=== PATIENT | male | born 1980 | race American Indian/Alaskan Native ===

== ENCOUNTER 2020-01-18 21:11 | Emergency (ER) | payer SELFPAY ==
--- NOTE | 2020-01-18 21:20 | Emergency Department Report ---
Blank Doc - Documentation Documentation: 40-year-old male that presents with abdominal pain. This initial assessment/diagnostic orders/clinical plan/treatment(s) is/are subject to change based on patient's health status, clinical progression and re- assessment by fellow clinical providers in the ED. Further treatment and workup at subsequent clinical providers discretion. Patient/guardians urged not to elope from the ED as their condition may be serious if not clinically assessed and managed. Initial orders include: 1- Patient sent to [facility] for further evaluation and treatment 2- labs 3- UA
[2020-01-18 22:56] LABS: Bilirubin,Urine NEG (Negative); Blood,Urine SM (Negative); Color,Urine Yellow (Yellow); Mucus,Urine FEW /HPF; Protein,Urine <15 mg/dL mg/dL (Negative)
[2020-01-18 23:21] LABS: Basophils # (Auto) 0.1 K/mm3 (0.0-0.1); Basophils % (Auto) 0.6 % (0.0-1.8); Eosinophils # (Auto) 0.5 K/mm3 (0.0-0.4); Eosinophils % (Auto) 5.7 % (0.0-4.3); Hematocrit 38.4 % (35.5-45.6); Hemoglobin 12.7 gm/dl (11.8-15.2); Lymphocytes % (Auto) 22.9 % (13.4-35.0); Mean Corpuscular HGB Conc 33 % (32-34); Mean Corpuscular Volume 88 fl (84-94); Monocytes # (Auto) 0.8 K/mm3 (0.0-0.8); Monocytes % (Auto) 8.9 % (0.0-7.3); Platelet Count 377 K/mm3 (140-440); Red Blood Count 4.34 M/mm3 (3.65-5.03); Red Cell Distribution Width 14.6 % (13.2-15.2)
[2020-01-18 23:46] LABS: Alanine Aminotransferase 7 units/L (7-56); Albumin 3.5 g/dL (3.9-5); BUN/Creatinine Ratio 13; Blood Urea Nitrogen 13 mg/dL (9-20); Hemolysis Index 5
--- NOTE | 2020-01-19 05:03 | Cat Scan Report ---
CT ABDOMEN AND PELVIS WITH CONTRAST INDICATION / CLINICAL INFORMATION: Pt complains of lower LEFT abd pain, Hx of hernia repair.. TECHNIQUE: Axial CT images were obtained through the abdomen and pelvis after 100 mL Omnipaque [address] scans at this location are performed using CT dose reduction for ALARA by means of automated exposure control. COMPARISON: None available. FINDINGS: LOWER CHEST: No significant abnormality. LIVER: No significant abnormality. GALLBLADDER: No significant abnormality. BILE DUCTS: No significant abnormality. PANCREAS: No significant abnormality. SPLEEN: No significant abnormality. ADRENALS: No significant abnormality. RIGHT KIDNEY and URETER: No significant abnormality. LEFT KIDNEY and URETER: No significant abnormality. STOMACH and SMALL BOWEL: No significant abnormality. COLON: Mild colonic diverticulosis without acute inflammation. APPENDIX: No significant abnormality. PERITONEUM: No free fluid. No free air. No fluid collection. LYMPH NODES: No significant adenopathy. AORTA and ARTERIES: No significant abnormality. IVC and VEINS: No significant abnormality. URINARY BLADDER: No significant abnormality. REPRODUCTIVE ORGANS: No significant abnormality. ADDITIONAL FINDINGS: Right inguinal hernia repair with no recurrent hernia. Multiple mildly prominent bilateral inguinal lymph nodes. Soft tissue swelling in induration along the lower back and superior gluteal cleft. No drainable fluid collection. SKELETAL SYSTEM: No significant abnormality. IMPRESSION: 1. No inflammatory process or bowel obstruction within the abdomen. 2. Colonic diverticulosis without inflammation. 3. Mildly prominent bilateral inguinal lymph nodes which may be reactive. 4. Previous right inguinal hernia repair with no recurrent hernia. 5. Possible cellulitis of the lower midline back extending to the superior gluteal cleft. No abscess. Signer Name: Sneha Randolph MD Signed: 01/19/2020 4:59 AM Workstation Name: [id number]
[2020-01-19 06:13] VITALS: BP 128/78
== END 2020-01-19 05:56 | disposition home or self-care (01) ==
LOC: ED 21:11
DX: R10.9 Unspecified abdominal pain (principal)
CPT/HCPCS: 36415; 74177; 80053; 81001; 83690; 85025; 87086; 99284; Q9967

== ENCOUNTER 2020-08-15 07:52 | Inpatient (IN) | payer OTHER ==
[2020-08-15 08:29] LABS: Hematocrit 45.1 % (35.5-45.6); Hemoglobin 14.9 gm/dl (11.8-15.2); Mean Corpuscular HGB Conc 33 % (32-34); Mean Corpuscular Volume 88 fl (84-94); Platelet Count 423 K/mm3 (140-440); Red Blood Count 5.13 M/mm3 (3.65-5.03); Red Cell Distribution Width 14.5 % (13.2-15.2)
[2020-08-15 09:36] LABS: Alanine Aminotransferase 7 units/L (7-56); Albumin 3.8 g/dL (3.9-5); BUN/Creatinine Ratio 11; Blood Urea Nitrogen 11 mg/dL (9-20); Calcium 9.5 mg/dL (8.4-10.2); Hemolysis Index 6
[2020-08-15 09:43] LABS: Total Cells Counted 100
[2020-08-15 09:45] LABS: Basophils % (Manual) 0 % (0.0-1.8)
[2020-08-15 09:46] LABS: Platelet Estimate Consistent w Auto; RBC Morphology Normal
--- NOTE | 2020-08-15 12:04 | Emergency Department Report ---
<COLEEN SONG - Last Filed: 08/15/20 13:06> ED Abdominal Pain HPI - General Chief Complaint: Abdominal Pain Stated Complaint: ABD PAIN Time Seen by Provider: 08/15/20 11:32 Source: patient Mode of arrival: Ambulatory Limitations: No Limitations - History of Present Illness Initial Comments: The patient was evaluated in the emergency department for symptoms described in the history of present illness. He/she was evaluated in the context of the global COVID-19 pandemic, which necessitated consideration that the patient might be at risk for infection with the virus that causes COVID-19. Institutional protocols and algorithms that pertain to the evaluation of patients at risk for COVID-19 are in a state of rapid change based on information released by regulatory bodies including the CDC and federal and state organizations. These policies and algorithms were followed during the patient's care in the emergency department. Please note that these policies, procedures and recommendations changed on a rapid basis. 40-year-old -Greek male presents to the emergency room complaining of abdominal pain around his belt line for 2 days. Patient states that the pain had gotten worse last night about a 20 out of 10 and he came in this morning for worsening pain. Patient states that the pain is sharp stabbing and constant. Patient denies any nausea no vomiting but does admit to a decreased appetite. Patient also reports that he has had increased urination about 7-8 times a night. He reports he has been feeling weak and tired worse yesterday. Patient reports that he has been treated for pilonidal cysts and hydradenitis and has been off his Cipro for a week. Patient also states that he had started amlodipine but did not take it today. Patient denies any known drug allergies does have a past medical history of hypertension and pilonidal cysts. MD Complaint: abdominal pain Onset/Timin Location: periumbilical, suprapubic Severity scale (0 -10): 8 Quality: stabbing, sharp Consistency: constant Improves With: nothing Worsens With: nothing Context: recent antibiotic use (Cipro) Associated Symptoms: fever (Low-grade), dysuria. denies: nausea, vomiting, diarrhea, constipation - Related Data Home Medications Medication Instructions Recorded Confirmed Last Taken Bentyl 10 mg PO Q6HR 08/15/20 08/15/20 1 Day Ago ~08/14/20 amLODIPine 5 mg PO DAILY 08/15/20 08/15/20 1 Day Ago ~08/14/20 Previous Rx's Medication Instructions Recorded Last Taken Type Acetaminophen [Acetaminophen TAB] 650 mg PO Q4H PRN tablet 08/19/20 Unknown Rx Ciprofloxacin [Ciprofloxacin ORAL 500 mg PO Q12H #20 ml 08/19/20 Unknown Rx LIQ] Famotidine [Pepcid] 20 mg PO BID #30 tablet 08/19/20 Unknown Rx metroNIDAZOLE [Flagyl] 500 mg PO Q12HR #20 tab 08/19/20 Unknown Rx oxyCODONE /ACETAMINOPHEN [Percocet 1 tab PO Q6HR PRN #30 tablet 08/19/20 Unknown Rx 5/325] Allergies Allergy/AdvReac Type Severity Reaction Status Date / Time No Known Allergies Allergy Unverified 07/02/15 00:09 ED Review of Systems Comment: All other systems reviewed and negative Constitutional: fever Gastrointestinal: abdominal pain ED Past Medical Hx - Past Medical History Previous Medical History?: No - Surgical History Past Surgical History?: No - Social History Smoking Status: Current Every Day Smoker Substance Use Type: None - Medications Home Medications: Home Medications Medication Instructions Recorded Confirmed Last Taken Type Bentyl 10 mg PO Q6HR 08/15/20 08/15/20 1 Day Ago History ~08/14/20 amLODIPine 5 mg PO DAILY 08/15/20 08/15/20 1 Day Ago History ~08/14/20 Acetaminophen [Acetaminophen TAB] 650 mg PO Q4H PRN tablet 08/19/20 Unknown Rx Ciprofloxacin [Ciprofloxacin ORAL 500 mg PO Q12H #20 ml 08/19/20 Unknown Rx LIQ] Famotidine [Pepcid] 20 mg PO BID #30 tablet 08/19/20 Unknown Rx metroNIDAZOLE [Flagyl] 500 mg PO Q12HR #20 tab 08/19/20 Unknown Rx oxyCODONE /ACETAMINOPHEN [Percocet 1 tab PO Q6HR PRN #30 tablet 08/19/20 Unknown Rx 5/325] ED Physical Exam - General Limitations: No Limitations General appearance: alert, in no apparent distress - Head Head exam: Present: atraumatic, normocephalic - Eye Eye exam: Present: normal appearance, PERRL - ENT ENT exam: Present: mucous membranes moist - Neck Neck exam: Present: normal inspection, full ROM - Respiratory Respiratory exam: Present: normal lung sounds bilaterally. Absent: respiratory distress, chest wall tenderness, accessory muscle use - Cardiovascular Cardiovascular Exam: Present: regular rate - GI/Abdominal GI/Abdominal exam: Present: soft, tenderness (Suprapubic). Absent: distended - Back Exam Back exam: Present: normal inspection, full ROM - Neurological Exam Neurological exam: Present: alert, oriented X3 - Psychiatric Psychiatric exam: Present: normal affect, normal mood - Skin Skin exam: Present: warm, dry, intact, normal color. Absent: rash ED Course - Reevaluation(s) Reevaluation #1: 08/15/20 13:[address] Asif Chacon regarding patient's abnormal CT and elevated white count. He would like the patient to be admitted to the hospitalist and for him to be consulted. I discussed antibiotic therapy resuscitation fluids and pain management. ED Medical Decision Making - Lab Data Result diagrams: 08/15/20 08:05 08/15/20 08:05 - Radiology Data Radiology results: report reviewed Patient: BLANE TORRES MR #: [id number] : 1980 Acct:[id number] Age/Sex: 40 / M ADM Date: 08/15/20 Loc: ED Attending Dr: Ordering Physician: HELGA FUENTES Date of Service: 08/15/20 Procedure(s): CT abdomen pelvis w con Accession Number(s): [id number] cc: HELGA FUENTES CT ABDOMEN AND PELVIS WITH CONTRAST INDICATION / CLINICAL INFORMATION: Acute abdominal pain around umbilicus. TECHNIQUE: Axial CT images were obtained through the abdomen and pelvis after 100 cc Omnipaque [address] scans at this location are performed using CT dose reduction for ALARA by means of automated exposure control. COMPARISON: CT abdomen and pelvis with contrast from 01/19/2020. FINDINGS: LOWER CHEST: No significant abnormality. LIVER: There is generalized steatosis without other significant abnormalities. GALLBLADDER: No significant abnormality. BILE DUCTS: No significant abnormality. PANCREAS: No significant abnormality. SPLEEN: No significant abnormality. ADRENALS: No significant abnormality. RIGHT KIDNEY / URETER: Stable simple right upper renal pole cyst. No other significant abnormalities. LEFT KIDNEY / URETER: Stable simple midpole left renal cyst. No other significant abnormalities. STOMACH / SMALL BOWEL: No significant abnormality. COLON: Diverticulosis is again noted along the sigmoid colon with moderate thickening throughout the sigmoid colon and marked surrounding inflammation. Multiple small bubbles of gas are seen along the mesenteric border of the proximal/middle third of the sigmoid colon on images 143 through 149 of series 2, consistent with contained perforation. No other significant abnormality. APPENDIX: Not seen. PERITONEUM: Free air as above. No pneumoperitoneum is noted elsewhere. No free fluid or fluid collection. LYMPH NODES: Mildly enlarged bilateral inguinal nodes are likely reactive. No other significant adenopathy. AORTA / ARTERIES: No significant abnormality. IVC / VEINS: No significant abnormality. URINARY BLADDER: Mild to moderate bladder wall thickening is likely secondary to underdistention as well as surrounding inflammation related to diverticulitis. No other significant abnormality. REPRODUCTIVE ORGANS: No significant abnormality. ADDITIONAL FINDINGS: None. SKELETAL SYSTEM: No significant abnormality. IMPRESSION: 1. Acute sigmoid diverticulitis as above with associated contained perforation. No organized drainable abscess is seen at this time. 2. Additional findings as above. CRITICAL RESULT: Time of Discovery (OPTICAL GLASS WET INSPECTOR/CDT): 11:24 Time of Communication (OPTICAL GLASS WET INSPECTOR/CDT): 11:28 Licensed Practitioner Receiving Report: Dr. oSng Read-Back Performed: Yes. Signer Name: Manav Mooney MD Signed: 08/15/2020 12:28 PM Workstation Name: [id number] Transcribed By: JACOB Dictated By: Manav Mooney MD Electronically Authenticated By: Manav Mooney MD Signed Date/Time: 08/15/20 1228 - Medical Decision Making 40-year-old -Greek male presents to the emergency room complaining of abdominal pain around his belt line for 2 days. Patient states that the pain had gotten worse last night about a 20 out of 10 and he came in this morning for worsening pain. Patient states that the pain is sharp stabbing and constant. Patient denies any nausea no vomiting but does admit to a decreased appetite. Patient also reports that he has had increased urination about 7-8 times a night. He reports he has been feeling weak and tired worse yesterday. Patient reports that he has been treated for pilonidal cysts and hydradenitis and has been off his Cipro for a week. Patient also states that he had started amlodipine but did not take it today. Patient denies any known drug allergies does have a past medical history of hypertension and pilonidal cysts. Call from radiology stating that patient has diverticulosis along the sigmoid colon with moderate thickening throughout the sigmoid and marked surrounding of inflammation with multiple small bubbles of gas are seen along the mesenteric border of the proximal middle third of the sigmoid colon. Consistent with contained perforation. Patient also has mild to moderate bladder wall thickening is likely secondary to undistended as well as surrounding inflammation related to the diverticulitis. 08/15/20 13:[address] Asif Chacon regarding patient's abnormal CT and elevated white count. He would like the patient to be admitted to the hospitalist and for him to be consulted. I discussed antibiotic therapy resuscitation fluids and pain management. Spoke to Dr. Negro regarding admission. He prefers patient to be on Zosyn 3.75 mg and Flagyl order was canceled for Levaquin and added Zosyn. ED Disposition Clinical Impression: Sepsis, Acute abdominal pain Diverticulitis of colon with perforation Qualifiers: Diverticulitis bleeding: unspecified bleeding status Qualified Code(s): K57.20 - Diverticulitis of large intestine with perforation and abscess without bleeding Disposition: OP ADMIT IP TO THIS HOSP Is pt being admited?: Yes Does the pt Need Aspirin: No Condition: Stable <PETER NETTLES - Last Filed: 09/01/20 02:28> ED Review of Systems ROS: Stated complaint: ABD PAIN Other details as noted in HPI ED Course Vital Signs 08/15/20 08/15/20 08/15/20 08:02 15:39 16:12 Temperature 99.0 F Pulse Rate 97 H 86 Respiratory 18 16 16 Rate Blood Pressure 154/105 151/100 [Right] O2 Sat by Pulse 97 99 98 Oximetry ED Medical Decision Making - Lab Data Result diagrams: 08/19/20 08:19 08/19/20 08:19 Critical care attestation.: If time is entered above; I have spent that time in minutes in the direct care of this critically ill patient, excluding procedure time. ED Disposition Is pt being admited?: Yes Does the pt Need Aspirin: No
--- NOTE | 2020-08-15 12:33 | Cat Scan Report ---
CT ABDOMEN AND PELVIS WITH CONTRAST INDICATION / CLINICAL INFORMATION: Acute abdominal pain around umbilicus. TECHNIQUE: Axial CT images were obtained through the abdomen and pelvis after 100 cc Omnipaque [address] scans at this location are performed using CT dose reduction for ALARA by means of automated exposure control. COMPARISON: CT abdomen and pelvis with contrast from 01/19/2020. FINDINGS: LOWER CHEST: No significant abnormality. LIVER: There is generalized steatosis without other significant abnormalities. GALLBLADDER: No significant abnormality. BILE DUCTS: No significant abnormality. PANCREAS: No significant abnormality. SPLEEN: No significant abnormality. ADRENALS: No significant abnormality. RIGHT KIDNEY / URETER: Stable simple right upper renal pole cyst. No other significant abnormalities. LEFT KIDNEY / URETER: Stable simple midpole left renal cyst. No other significant abnormalities. STOMACH / SMALL BOWEL: No significant abnormality. COLON: Diverticulosis is again noted along the sigmoid colon with moderate thickening throughout the sigmoid colon and marked surrounding inflammation. Multiple small bubbles of gas are seen along the m esenteric border of the proximal/middle third of the sigmoid colon on images 143 through 149 of serie s 2, consistent with contained perforation. No other significant abnormality. APPENDIX: Not seen. PERITONEUM: Free air as above. No pneumoperitoneum is noted elsewhere. No free fluid or fluid collect ion. LYMPH NODES: Mildly enlarged bilateral inguinal nodes are likely reactive. No other significant adeno jessee. AORTA / ARTERIES: No significant abnormality. IVC / VEINS: No significant abnormality. URINARY BLADDER: Mild to moderate bladder wall thickening is likely secondary to underdistention as w ell as surrounding inflammation related to diverticulitis. No other significant abnormality. REPRODUCTIVE ORGANS: No significant abnormality. ADDITIONAL FINDINGS: None. SKELETAL SYSTEM: No significant abnormality. IMPRESSION: 1. Acute sigmoid diverticulitis as above with associated contained perforation. No organized drainabl e abscess is seen at this time. 2. Additional findings as above. CRITICAL RESULT: Time of Discovery (CHAPLAINCY/CDT): 11:24 Time of Communication (CHAPLAINCY/CDT): 11:28 Licensed Practitioner Receiving Report: Dr. Bey Read-Back Performed: Yes. Signer Name: Manav Mooney MD Signed: 08/15/2020 12:28 PM Workstation Name: [id number]
[2020-08-15] MEDS ORDERED: ONDANSETRON 4 MG/2 ML INJ IV ONE (12:52)
[2020-08-15] MEDS ORDERED: MORPHINE 2 MG/1 ML INJ IV ONE (12:52)
[2020-08-15] MEDS ORDERED: metroNIDAZOLE/NS 500 MG/100 ML 500 MG/100 ML BAG IV ONE (12:52)
[2020-08-15] MEDS ORDERED: ACETAMINOPHEN 500 MG TAB PO ONE (12:54)
[2020-08-15] MEDS ORDERED: SODIUM CHLORIDE 0.9% 1000 ML 1,000 ML IV ONE (12:54)
[2020-08-15 12:56] LABS: Bacteria,Urine 1+ /HPF (Negative); Bilirubin,Urine NEG (Negative); Blood,Urine SM (Negative); Color,Urine Amber (Yellow); Mucus,Urine 3+ /HPF; Urobilinogen,Urine < 2.0 mg/dL (<2.0)
[2020-08-15] MEDS ORDERED: PIPERACILLIN/TAZOBACTAM 3.375 3.375 GM/50 ML BAG IV ONE (13:00)
--- NOTE | 2020-08-15 18:34 | Consultation ---
History of Present Illness Consult date: 08/15/20 Reason for consult: abdominal pain - History of present illness History of present illness: 40 yo male with 2 day h/o LLQ pain and chills. He denies fever or hematochezia. Had a colonoscopy ? 1 year ago but he is not sure of the results. Strong FH of colon ca which is the reason why he had the colonoscopy. Past History Past Medical History: hypertension Medications and Allergies Allergies Allergy/AdvReac Type Severity Reaction Status Date / Time No Known Allergies Allergy Unverified 07/02/15 00:09 Home Medications Medication Instructions Recorded Confirmed Last Taken Type Bentyl 10 mg PO Q6HR 08/15/20 08/15/20 1 Day Ago History ~08/14/20 amLODIPine [Norvasc] 5 mg PO DAILY 08/15/20 08/15/20 1 Day Ago History ~08/14/20 Review of Systems All systems: negative (none) Exam Vital Signs Temp Pulse Resp BP Pulse Ox 99.0 F 97 H 18 154/105 97 08/15/20 08:02 08/15/20 08:02 08/15/20 08:02 08/15/20 08:02 08/15/20 08:02 - General physical appearance Positive: well developed, well nourished, no distress - Eyes Positive: PERRL, normal occular movement - ENT Positive: normal pinna, normal nares, normal mucosa, no hearing loss, no congestion - Neck Positive: no masses, no bruits, trachea midline, no venous distension - Respiratory Positive: normal expansion, normal respiratory effort, clear to auscultation - Cardiovascular Rhythm: regular Heart Sounds: Present: S1 & S2. Absent: rub, click - Extremities Extremities: no ischemia, pulses symmetrical, No edema - Breasts Breasts: normal, no mass, no skin changes - Abdomen Abdomen: Present: other (Abdomen is soft and non-distended. BS are slightly hypoactive. There is mild/mod LLQ tenderness without rebound/guarding.) Hernia: none - Genitourinary Male Genitourinary: normal Female Genitourinary: normal - Integumentary no rash, no growths, no abnormal pigmentation - Neurologic Neurologic: alert and oriented to time, place and person, motor strength and sensation are grossly intact - Musculoskeletal normal gait, normal posture - Psychiatric Psychiatric: appropriate mood/affect, intact judgment & insight Results - Labs 08/15/20 08:05 08/15/20 08:05 Abnormal lab results 08/15/20 08/15/20 Range/Units 08:05 08:05 WBC 20.6 H (4.5-11.0) K/mm3 RBC 5.13 H (3.65-5.03) M/mm3 Seg Neuts % (Manual) 86.0 H (40.0-70.0) % Lymphocytes % (Manual) 7.0 L (13.4-35.0) % Seg Neutrophils # Man 17.7 H (1.8-7.7) K/mm3 Monocytes # (Manual) 1.2 H (0.0-0.8) K/mm3 Glucose 131 H (75-100) mg/dL Total Protein 8.4 H (6.3-8.2) g/dL Albumin 3.8 L (3.9-5) g/dL Diabetes panel 08/15/20 Range/Units 08:05 Sodium 138 (137-145) mmol/L Potassium 4.2 (3.6-5.0) mmol/L Chloride 99.7 (98-107) mmol/L Carbon Dioxide 23 (22-30) mmol/L BUN 11 (9-20) mg/dL Creatinine 1.0 (0.8-1.3) mg/dL Glucose 131 H (75-100) mg/dL Calcium 9.5 (8.4-10.2) mg/dL AST 8 (5-40) units/L ALT 7 (7-56) units/L Alkaline Phosphatase 83 (35-129) units/L Total Protein 8.4 H (6.3-8.2) g/dL Albumin 3.8 L (3.9-5) g/dL Calcium panel 08/15/20 Range/Units 08:05 Calcium 9.5 (8.4-10.2) mg/dL Albumin 3.8 L (3.9-5) g/dL Pituitary panel 08/15/20 Range/Units 08:05 Sodium 138 (137-145) mmol/L Potassium 4.2 (3.6-5.0) mmol/L Chloride 99.7 (98-107) mmol/L Carbon Dioxide 23 (22-30) mmol/L BUN 11 (9-20) mg/dL Creatinine 1.0 (0.8-1.3) mg/dL Glucose 131 H (75-100) mg/dL Calcium 9.5 (8.4-10.2) mg/dL Adrenal panel 08/15/20 Range/Units 08:05 Sodium 138 (137-145) mmol/L Potassium 4.2 (3.6-5.0) mmol/L Chloride 99.7 (98-107) mmol/L Carbon Dioxide 23 (22-30) mmol/L BUN 11 (9-20) mg/dL Creatinine 1.0 (0.8-1.3) mg/dL Glucose 131 H (75-100) mg/dL Calcium 9.5 (8.4-10.2) mg/dL Total Bilirubin 0.60 (0.1-1.2) mg/dL AST 8 (5-40) units/L ALT 7 (7-56) units/L Alkaline Phosphatase 83 (35-129) units/L Total Protein 8.4 H (6.3-8.2) g/dL Albumin 3.8 L (3.9-5) g/dL - Imaging CT scan - abdomen: report reviewed CT scan - pelvis: report reviewed Assessment and Plan - Patient Problems (1) Diverticulitis of colon with perforation Current Visit: Yes Status: Acute Qualifiers: Diverticulitis bleeding: unspecified bleeding status Qualified Code(s): K57.20 - Diverticulitis of large intestine with perforation and abscess without bleeding Plan to address problem: 1) NPO 2) Broad spectrum IV antibiotics 3) F/u CBC & BMP in the am 4) Will try to avoid operative intervention.
[2020-08-15] MEDS ORDERED: PIPERACILLIN/TAZOBACTAM 3.375 3.375 GM/50 ML BAG IV SCH (22:00)
[2020-08-15] MEDS ORDERED: MORPHINE 2 MG/1 ML INJ IV PRN (22:17)
[2020-08-15] MEDS ORDERED: ACETAMINOPHEN 325 MG TAB PO PRN (22:17)
[2020-08-15] MEDS ORDERED: ONDANSETRON 4 MG/2 ML INJ IV PRN (22:17)
--- NOTE | 2020-08-15 22:20 | History and Physical Report ---
History of Present Illness Date of examination: 08/15/20 Date of admission: 08/15/20 13:06 Chief complaint: Acute abdominal pain for 1 day History of present illness: 40-year-old -[place] male with no significant past medical history except for 1 episode of diverticulitis 2 years ago comes in for left lower quadrant pain radiating to the groin. Pain is about 10 on a scale of 1-10. Had 1 episode of vomiting this morning. No diarrhea. No fever. No exposure to coronavirus. No exacerbating or relieving factors. -- Past Medical History Diverticulitis x1 in 2016/2017 HTN -- Surgical History Past Surgical History?: No -- Social History Smoking Status: Current Every Day Smoker Substance Use Type: None --Family history Htn - Medications Home Medications: Home Medications Medication Instructions Recorded Confirmed Last Taken Type Amoxicillin [Trimox CAP] 500 mg PO BID #20 capsule 07/02/15 Unknown Rx methylPREDNISolone [Medrol Dose 4 mg PO .TAPER #1 pack 07/02/15 Unknown Rx Terence] Hyoscyamine Subl [Levsin Sl 0.125 0.125 mg SL Q6HR PRN #20 tab 01/19/20 Unknown Rx TAB] Review of Systems ROS: Stated complaint: ABD PAIN Constitutional no weight loss or weight gain no fever or chills HEENT no sore throat no post nasal drip no diplopia Neck no neck stiffness no lymph gland enlargement Chest and lungs no shortness of breath cough or wheezing CVS no chest pain no diaphoresis no palpitations GI left lower quadrant pain and vomiting x1 Genitourinary system no dysuria no flank pain Musculoskeletal system no muscle pains no joint pains [employer] no syncope no seizures Skin no rash no itching Psychiatric no depression no homicidal or suicidal tendencies Hematologic no lymphedema or bruising Endocrine no polydipsia no polyuria no cold intolerance no heat intolerance Past History Past Medical History: hypertension Medications and Allergies Allergies Allergy/AdvReac Type Severity Reaction Status Date / Time No Known Allergies Allergy Unverified 07/02/15 00:09 Home Medications Medication Instructions Recorded Confirmed Last Taken Type Bentyl 10 mg PO Q6HR 08/15/20 08/15/20 1 Day Ago History ~08/14/20 amLODIPine [Norvasc] 5 mg PO DAILY 08/15/20 08/15/20 1 Day Ago History ~08/14/20 Active Meds: Active Medications Piperacillin Sod/Tazobactam Sod (Zosyn/Ns 3.375gm/50ml) 3.375 gm in 50 mls @ 100 mls/hr IV Q8H [facility]; Protocol Last Admin: 08/15/20 21:51 Dose: 100 mls/hr Documented by: Exam - Constitutional Vitals: Temp Pulse Resp BP Pulse Ox 99.0 F 86 16 151/100 98 08/15/20 08:02 08/15/20 16:12 08/15/20 16:12 08/15/20 16:12 08/15/20 16:12 General appearance: Present: no acute distress, well-nourished - EENT Eyes: Present: PERRL ENT: hearing intact, clear oral mucosa - Neck Neck: Present: supple, normal ROM - Respiratory Respiratory effort: normal Respiratory: bilateral: CTA - Cardiovascular Heart rate: 88 Rhythm: regular Heart Sounds: Present: S1 & S2. Absent: rub, click - Extremities Extremities: pulses symmetrical, No edema Peripheral Pulses: within normal limits - Abdominal General gastrointestinal: Present: soft, tender, non-distended, normal bowel sounds Localized gastrointestinal: tender: LLQ, guarding: LLQ Male genitourinary: Present: normal - Integumentary Integumentary: Present: clear, warm, dry - Musculoskeletal Musculoskeletal: gait normal, strength equal bilaterally - Psychiatric Psychiatric: appropriate mood/affect, intact judgment & insight - Neurologic Neurologic: CNII-XII intact, moves all extremities - Allied Health Allied health notes reviewed: nursing, case management Results - Labs CBC & Chem 7: 08/15/20 08:05 08/15/20 08:05 Labs: Laboratory Last Values WBC 20.6 K/mm3 (4.5-11.0) H 08/15/20 08:05 RBC 5.13 M/mm3 (3.65-5.03) H 08/15/20 08:05 Hgb 14.9 gm/dl (11.8-15.2) 08/15/20 08:05 Hct 45.1 % (35.5-45.6) 08/15/20 08:05 MCV 88 fl (84-94) 08/15/20 08:05 MCH 29 pg (28-32) 08/15/20 08:05 MCHC 33 % (32-34) 08/15/20 08:05 RDW 14.5 % (13.2-15.2) 08/15/20 08:05 Plt Count 423 K/mm3 (140-440) 08/15/20 08:05 Add Manual Diff Complete 08/15/20 08:05 Total Counted 100 08/15/20 08:05 Seg Neuts % (Manual) 86.0 % (40.0-70.0) H 08/15/20 08:05 Band Neutrophils % 0 % 08/15/20 08:05 Lymphocytes % (Manual) 7.0 % (13.4-35.0) L 08/15/20 08:05 Reactive Lymphs % (Man) 0 % 08/15/20 08:05 Monocytes % (Manual) 6.0 % (0.0-7.3) 08/15/20 08:05 Eosinophils % (Manual) 1.0 % (0.0-4.3) 08/15/20 08:05 Basophils % (Manual) 0 % (0.0-1.8) 08/15/20 08:05 Metamyelocytes % 0 % 08/15/20 08:05 Myelocytes % 0 % 08/15/20 08:05 Promyelocytes % 0 % 08/15/20 08:05 Blast Cells % 0 % 08/15/20 08:05 Nucleated RBC % Not Reportable 08/15/20 08:05 Seg Neutrophils # Man 17.7 K/mm3 (1.8-7.7) H 08/15/20 08:05 Band Neutrophils # 0.0 K/mm3 08/15/20 08:05 Lymphocytes # (Manual) 1.4 K/mm3 (1.2-5.4) 08/15/20 08:05 Abs React Lymphs (Man) 0.0 K/mm3 08/15/20 08:05 Monocytes # (Manual) 1.2 K/mm3 (0.0-0.8) H 08/15/20 08:05 Eosinophils # (Manual) 0.2 K/mm3 (0.0-0.4) 08/15/20 08:05 Basophils # (Manual) 0.0 K/mm3 (0.0-0.1) 08/15/20 08:05 Metamyelocytes # 0.0 K/mm3 08/15/20 08:05 Myelocytes # 0.0 K/mm3 08/15/20 08:05 Promyelocytes # 0.0 K/mm3 08/15/20 08:05 Blast Cells # 0.0 K/mm3 08/15/20 08:05 WBC Morphology Not Reportable 08/15/20 08:05 Hypersegmented Neuts Not Reportable 08/15/20 08:05 Hyposegmented Neuts Not Reportable 08/15/20 08:05 Hypogranular Neuts Not Reportable 08/15/20 08:05 Smudge Cells Not Reportable 08/15/20 08:05 Toxic Granulation Not Reportable 08/15/20 08:05 Toxic Vacuolation Not Reportable 08/15/20 08:05 Dohle Bodies Not Reportable 08/15/20 08:05 Pelger-Huet Anomaly Not Reportable 08/15/20 08:05 Lino Rods Not Reportable 08/15/20 08:05 Platelet Estimate Consistent w auto 08/15/20 08:05 Clumped Platelets Not Reportable 08/15/20 08:05 Plt Clumps, EDTA Not Reportable 08/15/20 08:05 Large Platelets Not Reportable 08/15/20 08:05 Giant Platelets Not Reportable 08/15/20 08:05 Platelet Satelliting Not Reportable 08/15/20 08:05 Plt Morphology Comment Not Reportable 08/15/20 08:05 RBC Morphology Normal 08/15/20 08:05 Dimorphic RBCs Not Reportable 08/15/20 08:05 Polychromasia Not Reportable 08/15/20 08:05 Hypochromasia Not Reportable 08/15/20 08:05 Poikilocytosis Not Reportable 08/15/20 08:05 Anisocytosis Not Reportable 08/15/20 08:05 Microcytosis Not Reportable 08/15/20 08:05 Macrocytosis Not Reportable 08/15/20 08:05 Spherocytes Not Reportable 08/15/20 08:05 Pappenheimer Bodies Not Reportable 08/15/20 08:05 Sickle Cells Not Reportable 08/15/20 08:05 Target Cells Not Reportable 08/15/20 08:05 Tear Drop Cells Not Reportable 08/15/20 08:05 Ovalocytes Not Reportable 08/15/20 08:05 Helmet Cells Not Reportable 08/15/20 08:05 Padron-Kittanning Bodies Not Reportable 08/15/20 08:05 [place] Rings Not Reportable 08/15/20 08:05 Justus Cells Not Reportable 08/15/20 08:05 Bite Cells Not Reportable 08/15/20 08:05 Crenated Cell Not Reportable 08/15/20 08:05 Elliptocytes Not Reportable 08/15/20 08:05 Acanthocytes (Spur) Not Reportable 08/15/20 08:05 Rouleaux Not Reportable 08/15/20 08:05 Hemoglobin C Crystals Not Reportable 08/15/20 08:05 Schistocytes Not Reportable 08/15/20 08:05 Malaria parasites Not Reportable 08/15/20 08:05 Hunter Bodies Not Reportable 08/15/20 08:05 Hem Pathologist Commnt No 08/15/20 08:05 Sodium 138 mmol/L (137-145) 08/15/20 08:05 Potassium 4.2 mmol/L (3.6-5.0) 08/15/20 08:05 Chloride 99.7 mmol/L (98-107) 08/15/20 08:05 Carbon Dioxide 23 mmol/L (22-30) 08/15/20 08:05 Anion Gap 20 mmol/L 08/15/20 08:05 BUN 11 mg/dL (9-20) 08/15/20 08:05 Creatinine 1.0 mg/dL (0.8-1.3) 08/15/20 08:05 Estimated GFR > 60 ml/min 08/15/20 08:05 BUN/Creatinine Ratio 11 % 08/15/20 08:05 Glucose 131 mg/dL (75-100) H 08/15/20 08:05 Calcium 9.5 mg/dL (8.4-10.2) 08/15/20 08:05 Total Bilirubin 0.60 mg/dL (0.1-1.2) 08/15/20 08:05 AST 8 units/L (5-40) 08/15/20 08:05 ALT 7 units/L (7-56) 08/15/20 08:05 Alkaline Phosphatase 83 units/L (35-129) 08/15/20 08:05 Total Protein 8.4 g/dL (6.3-8.2) H 08/15/20 08:05 Albumin 3.8 g/dL (3.9-5) L 08/15/20 08:05 Albumin/Globulin Ratio 0.8 % 08/15/20 08:05 Urine Color Deysi (Yellow) 08/15/20 11:43 Urine Turbidity Clear (Clear) 08/15/20 11:43 Urine pH 5.0 (5.0-7.0) 08/15/20 11:43 Ur Specific [place] 1.025 (1.003-1.030) 08/15/20 11:43 Urine Protein 30 mg/dl mg/dL (Negative) 08/15/20 11:43 Urine Glucose (UA) Neg mg/dL (Negative) 08/15/20 11:43 Urine Ketones Tr mg/dL (Negative) 08/15/20 11:43 Urine Blood Sm (Negative) 08/15/20 11:43 Urine Nitrite Neg (Negative) 08/15/20 11:43 Urine Bilirubin Neg (Negative) 08/15/20 11:43 Urine Urobilinogen < 2.0 mg/dL (<2.0) 08/15/20 11:43 Ur Leukocyte Esterase Neg (Negative) 08/15/20 11:43 Urine WBC (Auto) 2.0 /HPF (0.0-6.0) 08/15/20 11:43 Urine RBC (Auto) 5.0 /HPF (0.0-6.0) 08/15/20 11:43 Urine Bacteria (Auto) 1+ /HPF (Negative) 08/15/20 11:43 Urine Mucus 3+ /HPF 08/15/20 11:43 - Imaging and Cardiology Imaging and Cardiology: Abdominal CAT scan Findings diverticulosis noted along the sigmoid colon with moderate thickening throughout the sigmoid colon and mild surrounding inflammation. Multiple small bubbles of gas are seen along the mesenteric border of the proximal/middle third of the sigmoid colon on images 143 through 149 consistent with contained perforation no other significant abnormality. Impression Acute sigmoid diverticulitis as above with associated contained perforation no organized drainable abscess is seen at this time Additional findings as above Sarkar/IV: Voiding Method Toilet IV Catheter Type [Left Hand] INT / Saline Lock Assessment and Plan Advance Directives: Yes - Patient Problems (1) Sepsis Current Visit: Yes Status: Acute Plan to address problem: Secondary to diverticulitis. Patient has a high white count. Continue IV Zosyn and IV Flagyl (2) Diverticulitis of colon with perforation Current Visit: Yes Status: Acute Qualifiers: Diverticulitis bleeding: unspecified bleeding status Qualified Code(s): K57.20 - Diverticulitis of large intestine with perforation and abscess without bleeding Plan to address problem: Patient has sigmoid diverticulitis with contained perforation. Surgical consult requested Patient may be amenable to IV antibiotic therapy ID consult also requested for antibiotic change (3) Hypertension Current Visit: Yes Status: Chronic Qualifiers: Hypertension type: essential hypertension Qualified Code(s): I10 - Essential (primary) hypertension Plan to address problem: Will initiate Catapres patch if blood pressure goes up. Patient is n.p.o. now (4) Pilonidal cyst Current Visit: Yes Status: Inactive (5) Hidradenitis Current Visit: Yes Status: Chronic Plan to address problem: In the perianal region May respond to IV Zosyn which is being given for the diverticulitis (6) DVT prophylaxis Current Visit: Yes Status: Acute Plan to address problem: On heparin and GI prophylaxis
[2020-08-15] MEDS: HEPARIN 5,000 UNIT/1 ML VIAL SUB-Q SCH (22:31)
[2020-08-15] MEDS: metroNIDAZOLE/NS 500 MG/100 ML 500 MG/100 ML BAG IV SCH (22:33)
[2020-08-15] MEDS: PIPERACIL/TAZOBACTA 4.5/NS 100 4.5 GM/100 ML VIAL IV SCH (22:34)
[2020-08-15] MEDS: HYDROmorphone 1 MG/1 ML INJ IV PRN (23:58)
[2020-08-16] MEDS: metroNIDAZOLE/NS 500 MG/100 ML 500 MG/100 ML BAG IV SCH ×3 (06:38→22:04)
[2020-08-16] MEDS: HYDROmorphone 1 MG/1 ML INJ IV PRN ×3 (06:40→20:00)
[2020-08-16] MEDS: PIPERACIL/TAZOBACTA 4.5/NS 100 4.5 GM/100 ML VIAL IV SCH ×3 (06:41→22:04)
[2020-08-16] MEDS: HEPARIN 5,000 UNIT/1 ML VIAL SUB-Q SCH ×2 (09:20→22:04)
[2020-08-16] MEDS: FAMOTIDINE 20 MG/2 ML INJ IV SCH ×2 (09:20→22:04)
[2020-08-16 11:56] LABS: Basophils # (Auto) 0.1 K/mm3 (0.0-0.1); Basophils % (Auto) 0.4 % (0.0-1.8); Eosinophils # (Auto) 0.1 K/mm3 (0.0-0.4); Eosinophils % (Auto) 0.7 % (0.0-4.3); Hematocrit 41.3 % (35.5-45.6); Hemoglobin 13.9 gm/dl (11.8-15.2); Lymphocytes # (Auto) 1.9 K/mm3 (1.2-5.4); Lymphocytes % (Auto) 12.1 % (13.4-35.0); Mean Corpuscular HGB Conc 34 % (32-34); Mean Corpuscular Volume 89 fl (84-94); Monocytes # (Auto) 1.3 K/mm3 (0.0-0.8); Monocytes % (Auto) 8.2 % (0.0-7.3); Platelet Count 428 K/mm3 (140-440); Red Blood Count 4.66 M/mm3 (3.65-5.03); Red Cell Distribution Width 14.4 % (13.2-15.2)
[2020-08-16 12:16] LABS: BUN/Creatinine Ratio 14; Blood Urea Nitrogen 11 mg/dL (9-20); Calcium 9.4 mg/dL (8.4-10.2); Hemolysis Index 16
[2020-08-16] MEDS: D5W/0.9% NACL 1,000 ML IV SCH (13:13)
--- NOTE | 2020-08-16 13:29 | Progress Note ---
Assessment and Plan - Patient Problems (1) Diverticulitis of colon with perforation Current Visit: Yes Status: Acute Qualifiers: Diverticulitis bleeding: unspecified bleeding status Qualified Code(s): K57.20 - Diverticulitis of large intestine with perforation and abscess without bleeding Plan to address problem: 1) Improving Plan: 1) CLD 2) Continue Zosyn 3) CBC & BMP in the am Subjective Date of service: 08/16/20 Patient Reports: Positive: no new complaints, feels better Objective Vital Signs - 12hr 08/16/20 06:26 Temperature 97.8 F Pulse Rate 90 Respiratory 16 Rate Blood Pressure 117/79 O2 Sat by Pulse 98 Oximetry - Abdomen soft, bowel sounds normal (Non-distended; less tender in the LLQ; No rebound or guarding.) - Labs 08/16/20 11:33 08/16/20 11:33 Diabetes panel 08/15/20 08/16/20 Range/Units 08:05 11:33 Sodium 138 (137-145) mmol/L Potassium 4.7 (3.6-5.0) mmol/L Chloride 99.3 (98-107) mmol/L Carbon Dioxide 27 (22-30) mmol/L BUN 11 (9-20) mg/dL Creatinine 0.8 (0.8-1.3) mg/dL Glucose 88 (75-100) mg/dL Hemoglobin A1c 5.6 (4-6) % Calcium 9.4 (8.4-10.2) mg/dL Calcium panel 08/16/20 Range/Units 11:33 Calcium 9.4 (8.4-10.2) mg/dL Pituitary panel 08/16/20 Range/Units 11:33 Sodium 138 (137-145) mmol/L Potassium 4.7 (3.6-5.0) mmol/L Chloride 99.3 (98-107) mmol/L Carbon Dioxide 27 (22-30) mmol/L BUN 11 (9-20) mg/dL Creatinine 0.8 (0.8-1.3) mg/dL Glucose 88 (75-100) mg/dL Calcium 9.4 (8.4-10.2) mg/dL Adrenal panel 08/16/20 Range/Units 11:33 Sodium 138 (137-145) mmol/L Potassium 4.7 (3.6-5.0) mmol/L Chloride 99.3 (98-107) mmol/L Carbon Dioxide 27 (22-30) mmol/L BUN 11 (9-20) mg/dL Creatinine 0.8 (0.8-1.3) mg/dL Glucose 88 (75-100) mg/dL Calcium 9.4 (8.4-10.2) mg/dL
--- NOTE | 2020-08-16 19:25 | Progress Note ---
Assessment and Plan - Patient Problems (1) Sepsis Current Visit: Yes Status: Acute Plan to address problem: Secondary to diverticulitis. Patient has a high white count. Continue IV Zosyn and IV Flagyl (2) Diverticulitis of colon with perforation Current Visit: Yes Status: Acute Qualifiers: Diverticulitis bleeding: unspecified bleeding status Qualified Code(s): K57.20 - Diverticulitis of large intestine with perforation and abscess without bleeding Plan to address problem: Patient has sigmoid diverticulitis with contained perforation. Surgical consult requested Patient may be amenable to IV antibiotic therapy ID consult also requested for antibiotic change (3) Hypertension Current Visit: Yes Status: Chronic Qualifiers: Hypertension type: essential hypertension Qualified Code(s): I10 - Essential (primary) hypertension Plan to address problem: Will initiate Catapres patch if blood pressure goes up. Patient is n.p.o. now (4) Pilonidal cyst Current Visit: Yes Status: Inactive (5) Hidradenitis Current Visit: Yes Status: Chronic Plan to address problem: In the perianal region May respond to IV Zosyn which is being given for the diverticulitis (6) DVT prophylaxis Current Visit: Yes Status: Acute Plan to address problem: On heparin and GI prophylaxis Subjective Date of service: 08/16/20 Principal diagnosis: Acute Diverticulitis Interval history: 40-year-old -[place] male with no significant past medical history except for 1 episode of diverticulitis 2 years ago comes in for left lower quadrant pain radiating to the groin. Pain is about 10 on a scale of 1-10. Had 1 episode of vomiting this morning. No diarrhea. No fever. No exposure to coronavirus. No exacerbating or relieving factors. Day #2-- Patient left lower quadrant pain is slightly better Surgery consult appreciated Repeat CBC and BMP in the a.m. Objective - Constitutional Vitals: Vital Signs - 12hr 08/16/20 08/16/20 12:49 15:51 Temperature 99.6 F 99.4 F Pulse Rate 90 79 Respiratory 16 15 Rate Blood Pressure 145/93 137/95 O2 Sat by Pulse 99 99 Oximetry General appearance: Present: no acute distress, well-nourished - EENT Eyes: PERRL, EOM intact ENT: hearing intact, clear oral mucosa Ears: bilateral: normal - Neck Neck: supple, normal ROM - Respiratory Respiratory effort: normal Respiratory: bilateral: CTA - Breasts Breasts: normal - Cardiovascular Rhythm: regular Heart Sounds: Present: S1 & S2. Absent: gallop, rub Extremities: pulses intact, No edema, normal color, Full ROM - Gastrointestinal General gastrointestinal: Present: soft, tender, non-distended, normal bowel sounds Localized gastrointestinal: tender: LLQ (No guarding) - Genitourinary Male genitourinary: normal - Integumentary Integumentary: clear, warm, dry - Musculoskeletal Musculoskeletal: 1, strength equal bilaterally - Neurologic Neurologic: moves all extremities - Psychiatric Psychiatric: memory intact, appropriate mood/affect, intact judgment & insight - Labs CBC & Chem 7: 08/16/20 11:33 08/16/20 11:33 Labs: Abnormal lab results 08/16/20 Range/Units 11:33 WBC 15.9 H (4.5-11.0) K/mm3 Lymph % (Auto) 12.1 L (13.4-35.0) % [place] % (Auto) 8.2 H (0.0-7.3) % [place] # (Auto) 1.3 H (0.0-0.8) K/mm3 Seg Neutrophils % 78.6 H (40.0-70.0) % Seg Neutrophils # 12.5 H (1.8-7.7) K/mm3
[2020-08-17] MEDS: D5W/0.9% NACL 1,000 ML IV SCH ×2 (03:55→21:52)
[2020-08-17] MEDS: metroNIDAZOLE/NS 500 MG/100 ML 500 MG/100 ML BAG IV SCH (05:06)
[2020-08-17] MEDS: PIPERACIL/TAZOBACTA 4.5/NS 100 4.5 GM/100 ML VIAL IV SCH ×3 (05:06→21:54)
--- NOTE | 2020-08-17 07:46 | Progress Note ---
Assessment and Plan - Patient Problems (1) Acute abdominal pain Current Visit: Yes Status: Acute Plan to address problem: Currently has resolved secondary to diverticular disease with colonic perforation. (2) Diverticulitis of colon with perforation Current Visit: Yes Status: Acute Qualifiers: Diverticulitis bleeding: unspecified bleeding status Qualified Code(s): K57.20 - Diverticulitis of large intestine with perforation and abscess without bleeding Plan to address problem: Patient much improved with bowel rest. Able to tolerate p.o. clear liquids. Advance to full liquids and then to soft foods in the a.m. (3) Sepsis Current Visit: Yes Status: Acute Plan to address problem: Continues to improve. Patient fever curve is coming down 99. Leukocytosis improved from 20-15. Clinically patient's abdomen has improved. Continue present antibiotic coverage. (4) Hidradenitis Current Visit: Yes Status: Chronic Plan to address problem: Should continue to improve with Zosyn. Pain control aggressive IV volume hydration. (5) Hypertension Current Visit: Yes Status: Chronic Qualifiers: Hypertension type: essential hypertension Qualified Code(s): I10 - Essential (primary) hypertension Plan to address problem: Continues to have optimal blood pressure control. Continue present medical management. (6) Pilonidal cyst Current Visit: Yes Status: Inactive Plan to address problem: This is causing majority of patients pain especially after he has a bowel movement goes to the bathroom. We will add Tucks pads to the area as well treat with IV Zosyn. Subjective Date of service: 08/17/20 Principal diagnosis: Acute Diverticulitis Interval history: Patient at present feels better tolerating clear liquid diet. Had 2 bowel movements today. Patient has no pain in the abdomen is only pain comes from the pilonidal cyst. Objective - Constitutional Vitals: Vital Signs - 12hr 08/16/20 08/17/20 08/17/20 22:30 00:00 06:28 Temperature 99.2 F 99.9 F H Pulse Rate 83 86 Pulse Rate [ 83 Right Brachial] Respiratory 18 18 18 Rate Blood Pressure 119/80 120/79 O2 Sat by Pulse 97 97 95 Oximetry 08/17/20 06:55 Temperature Pulse Rate Pulse Rate [ 86 Right Brachial] Respiratory 18 Rate Blood Pressure O2 Sat by Pulse 95 Oximetry General appearance: Present: no acute distress, well-nourished - EENT Eyes: PERRL, EOM intact ENT: hearing intact, clear oral mucosa Ears: bilateral: normal - Neck Neck: supple, normal ROM - Respiratory Respiratory effort: normal Respiratory: bilateral: CTA - Breasts Breasts: normal - Cardiovascular Rhythm: regular Heart Sounds: Present: S1 & S2. Absent: gallop, rub Extremities: pulses intact, No edema, normal color, Full ROM - Gastrointestinal General gastrointestinal: Present: soft, tender, non-distended, normal bowel sounds, other (Tenderness with deep palpation only.) - Genitourinary Male genitourinary: normal - Integumentary Integumentary: clear, warm, dry - Musculoskeletal Musculoskeletal: 1, strength equal bilaterally - Neurologic Neurologic: moves all extremities - Psychiatric Psychiatric: memory intact, appropriate mood/affect, intact judgment & insight - Labs CBC & Chem 7: 08/17/20 08:20 08/16/20 11:33 Labs: Abnormal lab results 08/16/20 Range/Units 11:33 WBC 15.9 H (4.5-11.0) K/mm3 Lymph % (Auto) 12.1 L (13.4-35.0) % [place] % (Auto) 8.2 H (0.0-7.3) % [place] # (Auto) 1.3 H (0.0-0.8) K/mm3 Seg Neutrophils % 78.6 H (40.0-70.0) % Seg Neutrophils # 12.5 H (1.8-7.7) K/mm3
[2020-08-17 08:45] LABS: Hematocrit 42.4 % (35.5-45.6); Hemoglobin 14.2 gm/dl (11.8-15.2); Mean Corpuscular HGB Conc 34 % (32-34); Mean Corpuscular Volume 89 fl (84-94); Platelet Count 430 K/mm3 (140-440); Red Blood Count 4.79 M/mm3 (3.65-5.03); Red Cell Distribution Width 14.4 % (13.2-15.2)
[2020-08-17] MEDS: HYDROmorphone 1 MG/1 ML INJ IV PRN ×3 (10:01→23:45)
[2020-08-17] MEDS: FAMOTIDINE 20 MG/2 ML INJ IV SCH ×2 (10:01→21:56)
[2020-08-17] MEDS: HEPARIN 5,000 UNIT/1 ML VIAL SUB-Q SCH ×2 (10:02→21:56)
--- NOTE | 2020-08-17 13:49 | Progress Note ---
Assessment and Plan (1) Diverticulitis of colon with perforation Current Visit: Yes Status: Acute Qualifiers: Diverticulitis bleeding: unspecified bleeding status Qualified Code(s): K57.20 - Diverticulitis of large intestine with perforation and abscess without bleeding Plan to address problem: Patient continues to improve. His white blood cell count is trending down. No fevers or chills. Tolerating clear liquids. Plan: 1) continue CLD, will consider advancing to full liquids tomorrow 2) Continue Zosyn 3) as needed pain control 4) IVF Thank you for this consultation. Please call with any questions or concerns. Evaluation and treatment of this patient was during the time of the national and state emergency arising from COVID19 coronavirus pandemic. Treatment and procedures performed meet the current and available best practice and guidelines for patient during the COVID pandemic. Subjective Date of service: 08/17/20 Narrative: Patient seen and examined. He states he feels better every day. Abdominal pain is much improved. No fevers or chills. He had a liquid bowel movement. Denies melena or hematochezia. He is tolerating a clear liquid diet. The patient had a colonoscopy in April 2020 which showed a small polyp, internal hemorrhoids, diverticulosis Objective Vital Signs - 12hr 08/17/20 08/17/20 08/17/20 06:28 06:55 12:04 Temperature 99.9 F H 98.7 F Pulse Rate 86 82 Pulse Rate [ 86 Right Brachial] Respiratory 18 18 16 Rate Blood Pressure 120/79 120/91 O2 Sat by Pulse 95 95 98 Oximetry - General physical appearance Narrative Exam: Gen.: Awake, alert, oriented 3. No apparent distress ENT: Trachea midline. No lymphadenopathy. No scleral icterus or conjunctival pallor CV: S1, S2 present Respiratory: No audible wheezes Abdomen: Soft, nondistended, mild suprapubic tenderness to palpation. No rebound, rigidity, guarding Extremities: No clubbing, cyanosis, edema - Labs 08/17/20 08:20 08/16/20 11:33
[2020-08-18] MEDS: PIPERACIL/TAZOBACTA 4.5/NS 100 4.5 GM/100 ML VIAL IV SCH ×3 (05:49→22:07)
[2020-08-18] MEDS: HEPARIN 5,000 UNIT/1 ML VIAL SUB-Q SCH ×2 (09:39→22:08)
[2020-08-18] MEDS: FAMOTIDINE 20 MG/2 ML INJ IV SCH ×2 (09:40→22:08)
[2020-08-18] MEDS: D5W/0.9% NACL 1,000 ML IV SCH ×2 (09:44→22:21)
[2020-08-18] MEDS: HYDROmorphone 1 MG/1 ML INJ IV PRN ×3 (09:51→22:09)
--- NOTE | 2020-08-18 15:08 | Progress Note ---
Assessment and Plan - Patient Problems (1) Acute abdominal pain Current Visit: Yes Status: Acute Plan to address problem: Currently has resolved secondary to diverticular disease with colonic perforation. Patient now tolerating meals well tolerated full diet to with advance as tolerated. (2) Diverticulitis of colon with perforation Current Visit: Yes Status: Acute Qualifiers: Diverticulitis bleeding: unspecified bleeding status Qualified Code(s): K57.20 - Diverticulitis of large intestine with perforation and abscess without bleeding Plan to address problem: Patient much improved with bowel rest. Able to tolerate p.o. clear liquids. Advance to full liquids and then to soft foods in the a.m. (3) Sepsis Current Visit: Yes Status: Acute Plan to address problem: Continues to improve. Patient fever curve is coming down 99. Leukocytosis improved from 20-15. Clinically patient's abdomen has improved. Continue present antibiotic coverage. Will change to p.o. antibiotics for tomorrow. (4) Hidradenitis Current Visit: Yes Status: Chronic Plan to address problem: Should continue to improve with Zosyn. Pain control aggressive IV volume hydration. (5) Hypertension Current Visit: Yes Status: Chronic Qualifiers: Hypertension type: essential hypertension Qualified Code(s): I10 - Essential (primary) hypertension Plan to address problem: Continues to have optimal blood pressure control. Continue present medical management. (6) Pilonidal cyst Current Visit: Yes Status: Inactive Plan to address problem: This is causing majority of patients pain especially after he has a bowel movement goes to the bathroom. We will add Tucks pads to the area as well treat with IV Zosyn. Subjective Date of service: 08/18/20 Principal diagnosis: Acute Diverticulitis Interval history: Patient at present feels better tolerating full liquid diet. Had an additional bowel movements today. Patient has no pain today. Feels much better keeping food down without pain. Objective - Constitutional Vitals: Vital Signs - 12hr 08/18/20 08/18/20 06:01 11:14 Temperature 98.3 F 97.7 F Pulse Rate 83 77 Respiratory 16 20 Rate Blood Pressure 115/87 120/88 O2 Sat by Pulse 98 97 Oximetry General appearance: Present: no acute distress, well-nourished - EENT Eyes: PERRL, EOM intact ENT: hearing intact, clear oral mucosa Ears: bilateral: normal - Neck Neck: supple, normal ROM - Respiratory Respiratory effort: normal Respiratory: bilateral: CTA - Breasts Breasts: normal - Cardiovascular Rhythm: regular Heart Sounds: Present: S1 & S2. Absent: gallop, rub Extremities: pulses intact, No edema, normal color, Full ROM - Gastrointestinal General gastrointestinal: Present: soft, non-tender, non-distended, normal bowel sounds - Genitourinary Male genitourinary: normal - Integumentary Integumentary: clear, warm, dry - Musculoskeletal Musculoskeletal: 1, strength equal bilaterally - Neurologic Neurologic: moves all extremities - Psychiatric Psychiatric: memory intact, appropriate mood/affect, intact judgment & insight - Labs CBC & Chem 7: 08/17/20 08:20 08/16/20 11:33
--- NOTE | 2020-08-18 16:00 | Progress Note ---
Assessment and Plan 40 yo M with (1) Complicated sigmoid diverticulitis (2) Chronic pilonidal cyst without abscess (3) Hidradenitits Patient continues to improve. Plan: 1) adv to full liquid diet, soft diet in am 2) Continue IV abx -> transition to oral cipro and flagyl x 14 total days of abx 3) as needed pain control 4) dc IVF 5) had a long discussion with patient regarding his chronic pilonidal cyst as well as hidradenitis. This has been an ongoing issue for the patient for the last 2 years and is not acute. Patient has already seen Dr. Valiente at [facility], a security intelligence analyst, and Dr. Vizcaino (plastic surgeon). He has been prescribed topical medications for this issue. The patient states that it was recommended that the hidradenitis be treated aggressively before considering surgical excision of the pilonidal cyst. Recommend continuing these topical therapies, sitz baths, warm compresses to the area. Patient may follow-up with the specialist as an outpatient or may follow-up with Dr. Chacon upon discharge. Patient tolerates soft diet in a.m., may be discharged from surgical standpoint. I am covering for Dr. Chacon until 08/19/2020. Please call with any questions or concerns. Evaluation and treatment of this patient was during the time of the national and state emergency arising from COVID19 coronavirus pandemic. Treatment and procedures performed meet the current and available best practice and guidelines for patient during the COVID pandemic. Subjective Date of service: 08/18/20 Narrative: Patient seen and examined. No abdominal pain. No nausea or vomiting. Tolerating liquid diet. No fevers or chills. Main complaint is regarding a pilonidal cyst, chronic. He states that the area is extremely uncomfortable. There has not been any drainage from the area. He states that this has been an ongoing issue for the last 1 to 2 years which is been made worse with hidradenitis in the area. Objective Vital Signs - 12hr 08/18/20 08/18/20 06:01 11:14 Temperature 98.3 F 97.7 F Pulse Rate 83 77 Respiratory 16 20 Rate Blood Pressure 115/87 120/88 O2 Sat by Pulse 98 97 Oximetry - General physical appearance Narrative Exam: Gen.: Awake, alert, oriented 3. No apparent distress ENT: Trachea midline. No lymphadenopathy. No scleral icterus or conjunctival pallor CV: S1, S2 present Respiratory: No audible wheezes Abdomen: Soft, nondistended, nontender. No rebound, rigidity, guarding Extremities: No clubbing, cyanosis, edema Sacrum: There is evidence of chronic induration of the skin of the sacral region and intergluteal cleft. Multiple sinus tracts are seen without drainage. - Labs 08/17/20 08:20 08/16/20 11:33
[2020-08-19] MEDS: HYDROmorphone 1 MG/1 ML INJ IV PRN ×2 (05:54→11:47)
[2020-08-19] MEDS: PIPERACIL/TAZOBACTA 4.5/NS 100 4.5 GM/100 ML VIAL IV SCH (05:55)
[2020-08-19 08:45] LABS: Basophils # (Auto) 0.1 K/mm3 (0.0-0.1); Basophils % (Auto) 0.8 % (0.0-1.8); Eosinophils # (Auto) 0.3 K/mm3 (0.0-0.4); Eosinophils % (Auto) 3.7 % (0.0-4.3); Hematocrit 37.9 % (35.5-45.6); Hemoglobin 12.9 gm/dl (11.8-15.2); Lymphocytes # (Auto) 1.8 K/mm3 (1.2-5.4); Lymphocytes % (Auto) 21.2 % (13.4-35.0); Mean Corpuscular HGB Conc 34 % (32-34); Mean Corpuscular Volume 87 fl (84-94); Monocytes % (Auto) 12.1 % (0.0-7.3); Platelet Count 420 K/mm3 (140-440); Red Blood Count 4.35 M/mm3 (3.65-5.03); Red Cell Distribution Width 14.1 % (13.2-15.2)
[2020-08-19 09:10] LABS: BUN/Creatinine Ratio 5; Blood Urea Nitrogen 5 mg/dL (9-20); Calcium 8.9 mg/dL (8.4-10.2); Hemolysis Index 4
[2020-08-19] MEDS: FAMOTIDINE 20 MG/2 ML INJ IV SCH (09:10)
[2020-08-19] MEDS: HEPARIN 5,000 UNIT/1 ML VIAL SUB-Q SCH (09:11)
[2020-08-19] MEDS: D5W/0.9% NACL 1,000 ML IV SCH (11:50)
[2020-08-19 11:52] VITALS: BP 137/100
--- NOTE | 2020-08-19 11:59 | Discharge Summary ---
Providers - Providers Date of Admission: 08/15/20 13:06 Date of discharge: 08/19/20 Attending physician: LEIGH MCMILLAN 08/15/20 12:58 Consult to Physician [CONS] Urgent Comment: Consulting Provider: BIBIANA GUTHRIE Physician Instructions: Reason For Exam: Diverticulitis with contained perforation 08/18/20 12:21 Consult to Dietitian/Nutrition [CONS] Routine Physician Instructions: Reason For Exam: Reason for Consult: Diet education, diverticulitis Primary care physician: CONTINUING EDUCATION DIRECTOR Hospitalization Condition: Stable Disposition: DC-30 STILL A PATIENT - Discharge Diagnoses (1) Acute abdominal pain Status: Acute Comment: Secondary to acute diverticulitis patient now much better after IV antibiotics. Surgical evaluation complete. Patient to have pilonidal cyst and hidradenitis treated conservatively first prior to surgical intervention. (2) Diverticulitis of colon with perforation Status: Acute Qualifiers: Diverticulitis bleeding: unspecified bleeding status Qualified Code(s): K57.20 - Diverticulitis of large intestine with perforation and abscess without bleeding (3) Sepsis Status: Acute Comment: No colonic perforation at this time. Treated IV antibiotics patient defervesced well decreased fever curve decreased pain unable able to tolerate p.o. now. Patient soft diet no complications stable for discharge. (4) Hidradenitis Status: Chronic Comment: Treat conservatively with topicals and p.o. antibiotics prior to surgical intervention. Patient is seen [facility] [place] recommendations have been made. (5) Hypertension Status: Chronic Qualifiers: Hypertension type: essential hypertension Qualified Code(s): I10 - Essential (primary) hypertension Comment: Well-controlled. (6) Pilonidal cyst Status: Inactive Comment: Follow-up surgery as outpatient. Core Measure Documentation - Palliative Care Palliative Care/ Comfort Measures: Not Applicable - Core Measures Any of the following diagnoses?: none Exam - Constitutional Vitals: Temp Pulse Resp BP Pulse Ox 98.1 F 69 20 137/100 99 08/19/20 11:10 08/19/20 11:10 08/19/20 11:10 08/19/20 11:10 08/19/20 11:10 General appearance: Present: no acute distress, well-nourished - EENT Eyes: Present: PERRL ENT: hearing intact, clear oral mucosa - Neck Neck: Present: supple, normal ROM - Respiratory Respiratory effort: normal Respiratory: bilateral: CTA - Cardiovascular Heart Sounds: Present: S1 & S2. Absent: rub, click - Extremities Extremities: pulses symmetrical, No edema Peripheral Pulses: within normal limits - Abdominal General gastrointestinal: Present: soft, non-tender, non-distended, normal bowel sounds Male genitourinary: Present: normal - Integumentary Integumentary: Present: clear, warm, dry - Musculoskeletal Musculoskeletal: gait normal, strength equal bilaterally - Psychiatric Psychiatric: appropriate mood/affect, intact judgment & insight - Neurologic Neurologic: CNII-XII intact, moves all extremities Plan Activity: no restrictions Weight Bearing Status: Full Weight Bearing Diet: low fat, advance as tolerated Wound: keep clean and dry Follow up with: PRIMARY CARE, [Primary Care Provider] - 3-5 Days BIBIANA GUTHRIE MD [Staff Physician] - 7 Days Prescriptions: Ciprofloxacin [Ciprofloxacin ORAL LIQ] 500 mg PO Q12H #20 ml metroNIDAZOLE [Flagyl] 500 mg PO Q12HR #20 tab Famotidine [Pepcid] 20 mg PO BID #30 tablet
[2020-08-19] MEDS ORDERED: FAMOTIDINE 20 MG TAB PO SCH (22:00)
== END 2020-08-19 15:40 | disposition home or self-care (01) | DRG 872 ==
LOC: ED 07:52 → 3A 13:06
PROVIDERS: ADMIT Internal Medicine; ATTEND Internal Medicine
DX: A41.9 Sepsis, unspecified organism (principal); K57.20 Diverticulitis of large intestine with perforation and abscess without bleeding; L05.91 Pilonidal cyst without abscess; D72.829 Elevated white blood cell count, unspecified; I10 Essential (primary) hypertension; L73.2 Hidradenitis suppurativa; F17.210 Nicotine dependence, cigarettes, uncomplicated; Z82.49 Family history of ischemic heart disease and other diseases of the circulatory system
CPT/HCPCS: 36415; 74177; 80048; 80053; 81001; 83036; 85007; 85025; 85027; 96374; 96375; G0378; J1170; J1644; J1956; J2270; J2405; J2543; J7030; J7042; Q9967

== ENCOUNTER 2020-12-16 14:37 | Emergency (ER) | payer OTHER ==
[2020-12-16 15:06] VITALS: BP 140/91
--- NOTE | 2020-12-16 15:59 | Emergency Department Report ---
- General Chief complaint: Medical Clearance Stated complaint: PAIN ON TAIL BONE Time Seen by Provider: 12/16/20 15:28 Source: patient Mode of arrival: Ambulatory Limitations: No Limitations - History of Present Illness Initial comments: This is a 40-year-old male nontoxic, well nourished in appearance, no acute signs of distress presents to the ED with c/o of redness and pain some swelling to buttock area. Patient has history of hidradenitis. Patient stated that he typically takes doxycycline 100 mg twice a day for 10 days which resolves. Patient stated that he was unable to follow-up with a primary care doctor due to no abilities. Patient does have a schedule appointment for surgical excision of the conditions. Patient denies any pus or drainage. Patient denies any fever, chills, nausea, vomiting, chest pain, shortness of breath, headache or stiff neck. Patient denies any allergies. -: days(s) Location: buttocks Severity: mild Severity scale (0 -10): 8 Quality: aching Consistency: constant Improves with: none Worsens with: none Context: none Associated symptoms: denies other symptoms - Related Data Home Medications Medication Instructions Recorded Confirmed Last Taken Bentyl 10 mg PO Q6HR 08/15/20 08/15/20 1 Day Ago ~08/14/20 amLODIPine 5 mg PO DAILY 08/15/20 08/15/20 1 Day Ago ~08/14/20 Previous Rx's Medication Instructions Recorded Last Taken Type Acetaminophen [Acetaminophen TAB] 650 mg PO Q4H PRN tablet 08/19/20 Unknown Rx Ciprofloxacin [Ciprofloxacin ORAL 500 mg PO Q12H #20 ml 08/19/20 Unknown Rx LIQ] Famotidine [Pepcid] 20 mg PO BID #30 tablet 08/19/20 Unknown Rx metroNIDAZOLE [Flagyl] 500 mg PO Q12HR #20 tab 08/19/20 Unknown Rx oxyCODONE /ACETAMINOPHEN [Percocet 1 tab PO Q6HR PRN #30 tablet 08/19/20 Unknown Rx 5/325] Doxycycline Hyclate [Doxycycline 100 mg PO Q12HR #20 tab 12/16/20 Unknown Rx Hyclate TAB] Allergies Allergy/AdvReac Type Severity Reaction Status Date / Time No Known Allergies Allergy Verified 12/16/20 15:03 Abscess Boil HPI - HPI Chief Complaint: Medical Clearance Stated Complaint: PAIN ON TAIL BONE Time Seen by Provider: 12/16/20 15:28 Home Medications: Home Medications Medication Instructions Recorded Confirmed Last Taken Bentyl 10 mg PO Q6HR 08/15/20 08/15/20 1 Day Ago ~08/14/20 amLODIPine 5 mg PO DAILY 08/15/20 08/15/20 1 Day Ago ~08/14/20 Previous Rx's Medication Instructions Recorded Last Taken Type Acetaminophen [Acetaminophen TAB] 650 mg PO Q4H PRN tablet 08/19/20 Unknown Rx Ciprofloxacin [Ciprofloxacin ORAL 500 mg PO Q12H #20 ml 08/19/20 Unknown Rx LIQ] Famotidine [Pepcid] 20 mg PO BID #30 tablet 08/19/20 Unknown Rx metroNIDAZOLE [Flagyl] 500 mg PO Q12HR #20 tab 08/19/20 Unknown Rx oxyCODONE /ACETAMINOPHEN [Percocet 1 tab PO Q6HR PRN #30 tablet 08/19/20 Unknown Rx 5/325] Doxycycline Hyclate [Doxycycline 100 mg PO Q12HR #20 tab 12/16/20 Unknown Rx Hyclate TAB] Allergies/Adverse Reactions: Allergies Allergy/AdvReac Type Severity Reaction Status Date / Time No Known Allergies Allergy Verified 12/16/20 15:03 ED Review of Systems ROS: Stated complaint: PAIN ON TAIL BONE Other details as noted in HPI Comment: All other systems reviewed and negative Constitutional: denies: chills, fever Eyes: denies: eye pain, eye discharge, vision change ENT: denies: ear pain, throat pain Respiratory: denies: cough, shortness of breath, wheezing Cardiovascular: denies: chest pain, palpitations Endocrine: no symptoms reported Gastrointestinal: denies: abdominal pain, nausea, diarrhea Genitourinary: denies: urgency, dysuria Musculoskeletal: denies: back pain, joint swelling, arthralgia Skin: denies: rash, lesions Neurological: denies: headache, weakness, paresthesias Psychiatric: denies: anxiety, depression Hematological/Lymphatic: denies: easy bleeding, easy bruising ED Past Medical Hx - Past Medical History Hx Hypertension: Yes Hx Heart Attack/AMI: No Hx Congestive Heart Failure: No Hx Diabetes: No Hx Deep Vein Thrombosis: No Hx GERD: No Hx Renal Disease: No Hx Arthritis: No Hx Seizures: No Hx Kidney Stones: No Hx Asthma: No Hx COPD: No Hx Dementia: No Hx HIV: No - Surgical History Hx Coronary Stent: No Hx Pacemaker: No Hx Internal Defibrillator: No - Social History Smoking Status: Never Smoker Substance Use Type: None - Medications Home Medications: Home Medications Medication Instructions Recorded Confirmed Last Taken Type Bentyl 10 mg PO Q6HR 08/15/20 08/15/20 1 Day Ago History ~08/14/20 amLODIPine 5 mg PO DAILY 08/15/20 08/15/20 1 Day Ago History ~08/14/20 Acetaminophen [Acetaminophen TAB] 650 mg PO Q4H PRN tablet 08/19/20 Unknown Rx Ciprofloxacin [Ciprofloxacin ORAL 500 mg PO Q12H #20 ml 08/19/20 Unknown Rx LIQ] Famotidine [Pepcid] 20 mg PO BID #30 tablet 08/19/20 Unknown Rx metroNIDAZOLE [Flagyl] 500 mg PO Q12HR #20 tab 08/19/20 Unknown Rx oxyCODONE /ACETAMINOPHEN [Percocet 1 tab PO Q6HR PRN #30 tablet 08/19/20 Unknown Rx 5/325] Doxycycline Hyclate [Doxycycline 100 mg PO Q12HR #20 tab 12/16/20 Unknown Rx Hyclate TAB] ED Physical Exam - General Limitations: No Limitations General appearance: alert, in no apparent distress - Head Head exam: Present: atraumatic, normocephalic - Eye Eye exam: Present: normal appearance - Neck Neck exam: Present: normal inspection, full ROM - Respiratory Respiratory exam: Absent: respiratory distress - Cardiovascular Cardiovascular Exam: Present: regular rate - External exam: Present: normal external exam, other (Some multiple redness, pain and swelling that is nodular. No induration or fluctuance noted on exam to the buttock area.). Absent: erythema, swelling, lesions, lacerations, ecchymosis, bleeding - Extremities Exam Extremities exam: Present: full ROM - Back Exam Back exam: Present: full ROM - Neurological Exam Neurological exam: Present: alert, oriented X3, normal gait - Psychiatric Psychiatric exam: Present: normal affect, normal mood - Skin Skin exam: Present: warm, dry, intact, normal color. Absent: rash ED Course Vital Signs 12/16/20 15:05 Temperature 98 F Pulse Rate 106 H Respiratory 18 Rate Blood Pressure 140/91 [Right] O2 Sat by Pulse 96 Oximetry - Reevaluation(s) Reevaluation #1: 12/16/20 15:58 Patient is speaking in full sentences with no signs of distress noted. ED Medical Decision Making - Medical Decision Making This is a 40-year-old male that presents with hydradenitis flareup. Patient is stable and was examined by me. There is no induration, fluctuance. No signs of abscess formation. Patient be treated with doxycycline as he requested. Patient was referred to Follow-up with a primary care doctor in 3-5 days or if symptoms worsen and continue return to emergency room as soon as possible. At time of discharge, the patient does not seem toxic or ill in appearance. No acute signs of distress noted. Patient agrees to discharge treatment plan of care. No further questions noted by the patient. Critical care attestation.: If time is entered above; I have spent that time in minutes in the direct care of this critically ill patient, excluding procedure time. ED Disposition Clinical Impression: Hidradenitis Disposition: DC-01 TO HOME OR SELFCARE Is pt being admited?: No Does the pt Need Aspirin: No Condition: Stable Instructions: Hidradenitis Suppurativa Additional Instructions: Follow-up with a primary care doctor in 3-5 days or if symptoms worsen and continue return to emergency room as soon as possible. Prescriptions: Doxycycline Hyclate [Doxycycline Hyclate TAB] 100 mg PO Q12HR #20 tab Referrals: PRIMARY MD DARIANA [Referring] - 3-5 Days AMIRAH SANDERS MD [Staff Physician] - 3-5 Days Time of Disposition: 15:59
== END 2020-12-16 16:57 | disposition home or self-care (01) ==
LOC: ED 14:37
DX: L73.2 Hidradenitis suppurativa (principal); I10 Essential (primary) hypertension; Z79.899 Other long term (current) drug therapy
CPT/HCPCS: 99282

== ENCOUNTER 2020-12-28 20:00 | Emergency (ER) | payer OTHER ==
--- NOTE | 2020-12-28 23:19 | Emergency Department Report ---
- General Chief Complaint: Wound/Laceration Stated Complaint: HYDRONITIS Time Seen by Provider: 12/28/20 22:49 Source: patient Mode of arrival: Ambulatory Limitations: No Limitations - History of Present Illness Initial Comments: Chief complaint: "Tailbone infection" HPI: This is a 40-year-old male with a history of diverticulitis, hidradenitis, pilonidal cyst, hypertension who presents with infection at his tailbone. He was seen December 16. 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 He has a flareup with pain. He no longer has access to antibiotics. Patient has hidradenitis at the sacral region as well as underlying probable nidal cyst which has been present for the past 6 months. He has received consultations by several surgeons. He has 2 surgeons who will treat him surgically. He plans to have a diverting colostomy with bowel resection prior to extensive excision in the sacral region. He states that he has had increased pain and drainage. Patient states that doxycycline normally helps the inflammation and pain. Mild pain in the region. It is uncomfortable to sit. -: Gradual, month(s) (6 months) Associated Symptoms: pain, other (drainage) - Related Data Home Medications Medication Instructions Recorded Confirmed Last Taken Bentyl 10 mg PO Q6HR 08/15/20 08/15/20 1 Day Ago ~08/14/20 amLODIPine 5 mg PO DAILY 08/15/20 08/15/20 1 Day Ago ~08/14/20 Previous Rx's Medication Instructions Recorded Last Taken Type Acetaminophen [Acetaminophen TAB] 650 mg PO Q4H PRN tablet 08/19/20 Unknown Rx Ciprofloxacin [Ciprofloxacin ORAL 500 mg PO Q12H #20 ml 08/19/20 Unknown Rx LIQ] Famotidine [Pepcid] 20 mg PO BID #30 tablet 08/19/20 Unknown Rx metroNIDAZOLE [Flagyl] 500 mg PO Q12HR #20 tab 08/19/20 Unknown Rx oxyCODONE /ACETAMINOPHEN [Percocet 1 tab PO Q6HR PRN #30 tablet 08/19/20 Unknown Rx 5/325] Doxycycline Hyclate [Doxycycline 100 mg PO Q12HR #20 tab 12/16/20 Unknown Rx Hyclate TAB] Doxycycline Hyclate [Doxycycline 100 mg PO Q12HR 14 Days #28 tab 12/28/20 Unkno wn Rx Hyclate TAB] Allergies Allergy/AdvReac Type Severity Reaction Status Date / Time No Known Allergies Allergy Verified 12/16/20 15:03 ED Review of Systems ROS: Stated complaint: HYDRONITIS Other details as noted in HPI Comment: All other systems reviewed and negative Constitutional: chills. denies: fever, malaise Respiratory: denies: cough, shortness of breath Gastrointestinal: denies: abdominal pain, nausea, vomiting Skin: rash, lesions ED Past Medical Hx - Past Medical History Previous Medical History?: Yes Hx Hypertension: Yes Hx Heart Attack/AMI: No Hx Congestive Heart Failure: No Hx Diabetes: No Hx Deep Vein Thrombosis: No Hx GERD: No Hx Renal Disease: No Hx Arthritis: No Hx Seizures: No Hx Kidney Stones: No Hx Asthma: No Hx COPD: No Hx Dementia: No Hx HIV: No Additional medical history: Pilonidal Cyst, hidradenitis - Surgical History Past Surgical History?: No Hx Coronary Stent: No Hx Pacemaker: No Hx Internal Defibrillator: No - Social History Smoking Status: Never Smoker Substance Use Type: None - Medications Home Medications: Home Medications Medication Instructions Recorded Confirmed Last Taken Type Bentyl 10 mg PO Q6HR 08/15/20 08/15/20 1 Day Ago History ~08/14/20 amLODIPine 5 mg PO DAILY 08/15/20 08/15/20 1 Day Ago History ~08/14/20 Acetaminophen [Acetaminophen TAB] 650 mg PO Q4H PRN tablet 08/19/20 Unknown Rx Ciprofloxacin [Ciprofloxacin ORAL 500 mg PO Q12H #20 ml 08/19/20 Unknown Rx LIQ] Famotidine [Pepcid] 20 mg PO BID #30 tablet 08/19/20 Unknown Rx metroNIDAZOLE [Flagyl] 500 mg PO Q12HR #20 tab 08/19/20 Unknown Rx oxyCODONE /ACETAMINOPHEN [Percocet 1 tab PO Q6HR PRN #30 tablet 08/19/20 Unknown Rx 5/325] Doxycycline Hyclate [Doxycycline 100 mg PO Q12HR #20 tab 12/16/20 Unknown Rx Hyclate TAB] Doxycycline Hyclate [Doxycycline 100 mg PO Q12HR 14 Days #28 tab 12/28/20 Unknown Rx Hyclate TAB] ED Physical Exam - General Limitations: No Limitations General appearance: alert, in no apparent distress - Head Head exam: Present: atraumatic, normocephalic - Eye Eye exam: Present: normal appearance - ENT ENT exam: Present: mucous membranes moist - Neck Neck exam: Present: normal inspection, full ROM - Respiratory Respiratory exam: Present: normal lung sounds bilaterally. Absent: respiratory distress, wheezes, rales, rhonchi - Cardiovascular Cardiovascular Exam: Present: regular rate, normal rhythm, normal heart sounds. Absent: systolic murmur, diastolic murmur, rubs, gallop - GI/Abdominal GI/Abdominal exam: Present: soft, normal bowel sounds. Absent: distended, tenderness, guarding, rebound - Rectal Rectal exam: Present: deferred - Extremities Exam Extremities exam: Present: normal inspection - Back Exam Back exam: Present: normal inspection - Neurological Exam Neurological exam: Present: alert, oriented X3 - Psychiatric Psychiatric exam: Present: normal affect, normal mood - Skin Skin exam: Present: other (Sacral region: Hyperpigmented indurated skin with papular lesions, 2 lesions with small expression of purulent drainage, underlying fluctuance) ED Course Vital Signs 12/28/20 20:48 Temperature 99.6 F Pulse Rate 95 H Respiratory 16 Rate Blood Pressure 159/111 O2 Sat by Pulse 97 Oximetry ED Medical Decision Making - Medical Decision Making This is a 40-year-old male who is currently under treatment of 2 surgeons. He plans to have 2 significant surgeries including a diverting colostomy with bowel resection prior to extensive excision. I have prescribed doxycycline. Patient was referred to [employer] [facility] for medical treatment. However he was unable to receive an appointment until February. Patient is discharged home in stable condition. Critical care attestation.: If time is entered above; I have spent that time in minutes in the direct care of this critically ill patient, excluding procedure time. ED Disposition Clinical Impression: Hidradenitis, Hidradenitis suppurativa, Pilonidal cyst Disposition: DC-01 TO HOME OR SELFCARE Is pt being admited?: No Does the pt Need Aspirin: No Condition: Stable Instructions: Pilonidal Cyst, Hidradenitis Suppurativa Prescriptions: Doxycycline Hyclate [Doxycycline Hyclate TAB] 100 mg PO Q12HR 14 Days #28 tab Referrals: RUT PENA [Other] - 3-5 Days
[2020-12-28 23:38] VITALS: BP 147/87
== END 2020-12-28 23:37 | disposition home or self-care (01) ==
LOC: ED 20:00
DX: L73.2 Hidradenitis suppurativa (principal); L05.91 Pilonidal cyst without abscess; I10 Essential (primary) hypertension; Z79.899 Other long term (current) drug therapy
CPT/HCPCS: 99282

== ENCOUNTER 2021-03-20 00:27 | Emergency (ER) | payer SELFPAY ==
[2021-03-20 01:14] VITALS: BP 152/93
[2021-03-20 01:31] LABS: Basophils # (Auto) 0.1 K/mm3 (0.0-0.1); Basophils % (Auto) 0.8 % (0.0-1.8); Eosinophils % (Auto) 0.4 % (0.0-4.3); Hematocrit 40.4 % (35.5-45.6); Hemoglobin 13.6 gm/dl (11.8-15.2); Lymphocytes # (Auto) 1.6 K/mm3 (1.2-5.4); Lymphocytes % (Auto) 13.1 % (13.4-35.0); Mean Corpuscular HGB Conc 34 % (32-34); Mean Corpuscular Volume 88 fl (84-94); Monocytes # (Auto) 1.4 K/mm3 (0.0-0.8); Platelet Count 335 K/mm3 (140-440); Red Blood Count 4.61 M/mm3 (3.65-5.03); Red Cell Distribution Width 15.4 % (13.2-15.2)
[2021-03-20 01:54] LABS: Bilirubin,Urine NEG (Negative); Blood,Urine NEG (Negative); Color,Urine Yellow (Yellow); Mucus,Urine 1+ /HPF; Protein,Urine <15 mg/dL mg/dL (Negative)
[2021-03-20 01:55] LABS: Alanine Aminotransferase 14 units/L (7-56); Albumin 3.6 g/dL (3.9-5); BUN/Creatinine Ratio 11; Blood Urea Nitrogen 11 mg/dL (9-20); Calcium 8.4 mg/dL (8.4-10.2); Hemolysis Index 4
[2021-03-20] MEDS ORDERED: ONDANSETRON 4 MG/2 ML INJ IV ONE (03:53)
[2021-03-20] MEDS ORDERED: cefTRIAXone/NS 1 GM/50 ML 1 GM/50 ML BAG IV ONE (03:53)
--- NOTE | 2021-03-20 04:04 | Emergency Department Report ---
ED Abdominal Pain HPI - General Chief Complaint: Abdominal Pain Stated Complaint: PAIN LOWER STOMACH Time Seen by Provider: 03/20/21 03:52 Source: patient Mode of arrival: Ambulatory Limitations: No Limitations - History of Present Illness Initial Comments: Patient is a 41-year-old male with a history of diverticulitis who presents for left lower quadrant abdominal pain for the past 3 days. Patient is followed by gastroenterology and internal medicine. Patient is scheduled for gastric resection in 2 weeks. There is been no fever, chills, or vomiting. Patient is tolerating p.o. intake at this time. States symptoms are 3/10 at this time. Last bowel movement was this evening normal for patient. States he just feels dehydrated. There are no other exacerbating or relieving factors. MD Complaint: abdominal pain - Related Data Home Medications Medication Instructions Recorded Confirmed Last Taken Bentyl 10 mg PO Q6HR 08/15/20 08/15/20 1 Day Ago ~08/14/20 amLODIPine 5 mg PO DAILY 08/15/20 08/15/20 1 Day Ago ~08/14/20 Previous Rx's Medication Instructions Recorded Last Taken Type Acetaminophen [Acetaminophen TAB] 650 mg PO Q4H PRN tablet 08/19/20 Unknown Rx Ciprofloxacin [Ciprofloxacin ORAL 500 mg PO Q12H #20 ml 08/19/20 Unknown Rx LIQ] Famotidine [Pepcid] 20 mg PO BID #30 tablet 08/19/20 Unknown Rx metroNIDAZOLE [Flagyl] 500 mg PO Q12HR #20 tab 08/19/20 Unknown Rx oxyCODONE /ACETAMINOPHEN [Percocet 1 tab PO Q6HR PRN #30 tablet 08/19/20 Unknown Rx 5/325] Doxycycline Hyclate [Doxycycline 100 mg PO Q12HR #20 tab 12/16/20 Unknown Rx Hyclate TAB] Doxycycline Hyclate [Doxycycline 100 mg PO Q12HR 14 Days #28 tab 12/28/20 Unknown Rx Hyclate TAB] Dicyclomine [Bentyl] 10 mg PO QID PRN #15 capsule 03/20/21 Unknown Rx traMADoL [Ultram] 50 mg PO Q6HR PRN #12 tablet 03/20/21 Unknown Rx Allergies Allergy/AdvReac Type Severity Reaction Status Date / Time No Known Allergies Allergy Verified 12/16/20 15:03 ED Review of Systems ROS: Stated complaint: PAIN LOWER STOMACH Other details as noted in HPI Constitutional: denies: chills, fever Eyes: denies: eye pain, eye discharge, vision change ENT: denies: ear pain, throat pain Respiratory: denies: cough, shortness of breath, wheezing Cardiovascular: denies: chest pain, palpitations Endocrine: no symptoms reported Gastrointestinal: abdominal pain, nausea. denies: vomiting, diarrhea, co nstipation, hematemesis, melena, hematochezia Genitourinary: denies: urgency, dysuria Musculoskeletal: denies: back pain, joint swelling, arthralgia Skin: denies: rash, lesions Neurological: as per HPI Psychiatric: denies: anxiety, depression Hematological/Lymphatic: denies: easy bleeding, easy bruising ED Past Medical Hx - Past Medical History Previous Medical History?: Yes Hx Hypertension: Yes Hx Heart Attack/AMI: No Hx Congestive Heart Failure: No Hx Diabetes: No Hx Deep Vein Thrombosis: No Hx GERD: No Hx Renal Disease: No Hx Arthritis: No Hx Seizures: No Hx Kidney Stones: No Hx Asthma: No Hx COPD: No Hx Dementia: No Hx HIV: No Additional medical history: Pilonidal Cyst, hidradenitis, diverticulitis - Surgical History Past Surgical History?: No Hx Coronary Stent: No Hx Pacemaker: No Hx Internal Defibrillator: No - Social History Smoking Status: Current Some Day Smoker Substance Use Type: None - Medications Home Medications: Home Medications Medication Instructions Recorded Confirmed Last Taken Type Bentyl 10 mg PO Q6HR 08/15/20 08/15/20 1 Day Ago History ~08/14/20 amLODIPine 5 mg PO DAILY 08/15/20 08/15/20 1 Day Ago History ~08/14/20 Acetaminophen [Acetaminophen TAB] 650 mg PO Q4H PRN tablet 08/19/20 Unknown Rx Ciprofloxacin [Ciprofloxacin ORAL 500 mg PO Q12H #20 ml 08/19/20 Unknown Rx LIQ] Famotidine [Pepcid] 20 mg PO BID #30 tablet 08/19/20 Unknown Rx metroNIDAZOLE [Flagyl] 500 mg PO Q12HR #20 tab 08/19/20 Unknown Rx oxyCODONE /ACETAMINOPHEN [Percocet 1 tab PO Q6HR PRN #30 tablet 08/19/20 Unknown Rx 5/325] Doxycycline Hyclate [Doxycycline 100 mg PO Q12HR #20 tab 12/16/20 Unknown Rx Hyclate TAB] Doxycycline Hyclate [Doxycycline 100 mg PO Q12HR 14 Days #28 tab 12/28/20 Unknown Rx Hyclate TAB] Dicyclomine [Bentyl] 10 mg PO QID PRN #15 capsule 03/20/21 Unknown Rx traMADoL [Ultram] 50 mg PO Q6HR PRN #12 tablet 03/20/21 Unknown Rx ED Physical Exam - General Limitations: No Limitations General appearance: alert, in no apparent distress - Head Head exam: Present: atraumatic, normocephalic - Eye Eye exam: Present: normal appearance, EOMI Pupils: Present: normal accommodation - ENT ENT exam: Present: mucous membranes moist - Neck Neck exam: Present: normal inspection, full ROM - Respiratory Respiratory exam: Present: normal lung sounds bilaterally. Absent: respiratory distress, wheezes, stridor, chest wall tenderness - Cardiovascular Cardiovascular Exam: Present: regular rate, normal rhythm, normal heart sounds. Absent: systolic murmur, diastolic murmur, rubs, gallop - GI/Abdominal GI/Abdominal exam: Present: soft, normal bowel sounds. Absent: distended, tenderness, guarding, rebound, rigid, mass, hernia - Rectal Rectal exam: Present: deferred - Extremities Exam Extremities exam: Present: normal inspection - Back Exam Back exam: Present: normal inspection, full ROM. Absent: CVA tenderness (R), CVA tenderness (L) - Neurological Exam Neurological exam: Present: alert - Psychiatric Psychiatric exam: Present: normal affect, normal mood - Skin Skin exam: Present: warm, dry, intact, normal color. Absent: rash ED Course Vital Signs 03/20/21 01:02 Temperature 99.6 F Pulse Rate 90 Respiratory 18 Rate Blood Pressure 152/93 O2 Sat by Pulse 97 Oximetry ED Medical Decision Making - Lab Data Result diagrams: 03/20/21 01:15 03/20/21 01:15 Labs 03/20/21 03/20/21 03/20/21 01:15 01:15 01:37 WBC 12.5 H RBC 4.61 Hgb 13.6 Hct 40.4 MCV 88 MCH 30 MCHC 34 RDW 15.4 H Plt Count 335 Lymph % (Auto) 13.1 L [place] % (Auto) 11.0 H Eos % (Auto) 0.4 Baso % (Auto) 0.8 Lymph # (Auto) 1.6 [place] # (Auto) 1.4 H Eos # (Auto) 0.0 Baso # (Auto) 0.1 Seg Neutrophils % 74.7 H Seg Neutrophils # 9.3 H Sodium 136 L Potassium 4.2 Chloride 98.8 Carbon Dioxide 27 Anion Gap 14 BUN 11 Creatinine 1.0 Estimated GFR > 60 BUN/Creatinine Ratio 11 Glucose 109 H Calcium 8.4 Total Bilirubin 0.40 AST 13 ALT 14 Alkaline Phosphatase 76 Total Protein 6.7 Albumin 3.6 L Albumin/Globulin Ratio 1.2 Urine Color Yellow Urine Turbidity Clear Urine pH 5.0 Ur Specific [place] 1.020 Urine Protein <15 mg/dl Urine Glucose (UA) Neg Urine Ketones Neg Urine Blood Neg Urine Nitrite Neg Urine Bilirubin Neg Urine Urobilinogen 2.0 Ur Leukocyte Esterase Neg Urine WBC (Auto) 1.0 Urine RBC (Auto) 3.0 U Epithel Cells (Auto) < 1.0 Urine Mucus 1+ - Medical Decision Making Symptoms are relieved, patient is tolerating p.o. intake, there has been no fever or chills. pt is having normal bowel movements There is been no other exacerbating factors. Patient is currently taking doxycycline as prescribed by GI, patient will follow-up as scheduled with GI for colon resection, and excision of pilonidal cyst. Patient is currently alert oriented x3, patient's or ambulatory, patient is with no acute distress. Critical care attestation.: If time is entered above; I have spent that time in minutes in the direct care of this critically ill patient, excluding procedure time. ED Disposition Clinical Impression: Abdominal pain Qualifiers: Abdominal location: unspecified location Qualified Code(s): R10.9 - Unspecified abdominal pain Disposition: DC- TO HOME OR SELFCARE Is pt being admited?: No Does the pt Need Aspirin: No Condition: Stable Instructions: Abdominal Pain, Adult Additional Instructions: Stop any Alcohol until after being cleared by tk Ferrari with primary care doctor as directed, continue to hydrate, and ovoid trigger foods. return to emergency if symptoms worsen. Prescriptions: Dicyclomine [Bentyl] 10 mg PO QID PRN #15 capsule PRN Reason: abdominal spasm traMADoL [Ultram] 50 mg PO Q6HR PRN #12 tablet PRN Reason: Pain Referrals: [facility] [Provider Group] - 3-5 Days [id number],[id number], MD [Staff Physician] - 3-5 Days Forms: Work/School Release Form(ED) Time of Disposition: 06:06
== END 2021-03-20 06:44 | disposition home or self-care (01) ==
LOC: ED 00:27
DX: R10.32 Left lower quadrant pain (principal); F17.200 Nicotine dependence, unspecified, uncomplicated; I10 Essential (primary) hypertension; Z98.890 Other specified postprocedural states; Z79.899 Other long term (current) drug therapy
CPT/HCPCS: 36415; 80053; 81001; 85025; 96365; 96375; 99283; J0696; J2405